=== PATIENT | male | born 1940 | race Caucasian/White ===

== ENCOUNTER 2018-08-11 18:48 | Observation (INO) | payer MEDICARE, MEDICAID ==
[~2018-08-11] VITALS: Ht 175.3 cm; Wt 82.6 kg
[~2018-08-11 18:48] MED LIST: BL ADULT ASA81 MG PO; CIPROFLOXACN500 MG PO; GLYCOLAX3350 N1 PO; HYZAAR1 TA1 PO; MILK OF MAG30 ML/UDC PO; SMZ-TMP DS1 TAB PO; TAMSULOSIN0.4 MG PO
--- NOTE | 2018-08-11 18:48 | NUR ---
PATIENT BROUGHT IMMEDIATELY TO TREATMENT AREA VIA WHEELCHAIR. UNDRESSED INTO A GOWN, PLACED ON MONITOR. TRIAGE COMPLETED AT BEDSIDE.
[2018-08-11 19:21] LABS: IMMATURE GRANULOCYTES 1.4 % (0.0-5.0); MEAN CELL VOLUME 93.6 fL CALC (80.0-100.0); MEAN CORPUSCULAR HGB 31.3 pG CALC (26.0-32.0); MEAN CORPUSCULAR HGB CONC 33.4 g/L CALC (32.0-36.0); NEUT# 2.07 thou/uL (1.82-7.42); RED BLOOD COUNT 4.67 mill/uL (4.70-6.10); RED CELL DISTRI WIDTH 13.2 % (11.5-15.5)
[2018-08-11 19:25] LABS: HEMATOCRIT 43.7 % (39.0-50.0); HEMOGLOBIN 14.6 g/dl (14.0-18.0)
[2018-08-11 19:34] LABS: ALBUMIN 4.6 g/dL (3.2-5.0); ALKALINE PHOSPHATASE 54 u/l (38-126); ANION GAP 17 (6-22 (CALC)); BILIRUBIN, TOTAL 0.7 mg/dL (0.0-1.4); BUN 12 mg/dL (8-23); BUN/CREATININE RATIO 10 (12-20 (CALC)); CARBON DIOXIDE 26 mmol/l (22-30); CHLORIDE 99 mmol/l (95-108); CREATININE 1.2 mg/dL (0.7-1.3); GFR 58 ML/MIN (>=60 (CALC)); GFR FOR AFR.AMER. > 60 ML/MIN (>=60 (CALC)); SGOT/AST 20 u/l (19-48); SODIUM 138 mmol/l (137-146); TOTAL PROTEIN 7.6 g/dL (6.3-8.2)
[2018-08-11 19:46] LABS: MYOGLOBIN 51 ng/mL (0 - 121)
--- NOTE | 2018-08-11 20:19 | NUR ---
PT WITH IV ESTABLISHED, BLOOD DRAWN, HAS BEEN TO CT AND BACK. FAMILY AT BEDSIDE.
--- NOTE | 2018-08-11 20:55 | NUR ---
EDP IN ROOM, EXPLAINS FINDINGS AND PLAN OF CARE TO ADMIT PT. PT WITH MANY FAMILY MEMBERS AT BEDSIDE, SUPPORTIVE.
[2018-08-11 21:13] LABS: URINE BILIRUBIN - DIPSTICK NEGATIVE (NEGATIVE); URINE BLOOD DIPSTICK NEGATIVE (NEGATIVE); URINE COLOR YELLOW; URINE GLUCOSE - DIPSTICK NEGATIVE (NEGATIVE); URINE KETONE NEGATIVE (NEGATIVE); URINE LEUK ESTERASE NEGATIVE (NEGATIVE); URINE NITRITE - DIPSTICK NEGATIVE (Negative); URINE PROTEIN - DIPSTICK NEGATIVE (NEG-TRACE); URINE UROBILINOGEN - DIPSTICK 0.2 E.U./dL (0.2)
--- NOTE | 2018-08-11 21:13 | NUR ---
REPORT PROVIDED TO TACHO, TO MONICA SOON.
--- NOTE | 2018-08-11 21:25 | NUR ---
PT. ARRIVED TO THE FLOOR VIA STRETCHER ACCOMPANIED BY ER NURSEDAN. LOPEZ IN AT BEDSIDE OBTAINING VS; PT. AND FAMILY MEMBER UPDATED WITH POC; VERBALIZES UNDERSTANDING; INSTRUCTED ON FALL RISK INSTRUCTIONS AND INSTRUCTED TO CALL FOR ALL OOB NEEDS AND TO URINATE IN URINAL FOR EVERY VOID; VERBALIZES UNDERSTANDING; PT. WAS MEDICATED IN ER WITH 0.2 CLOIDINE FOR HTN; WILL CONTINUE TO MONITOR.
--- NOTE | 2018-08-11 21:29 | NUR ---
PT TAKEN TO ROOM 261 WITHOUT INCIDENT, REPORT WAS TO
[2018-08-11 21:35] VITALS: BP 167/85
--- NOTE | 2018-08-11 22:00 | NUR ---
ADMISSION ASSESSMENT COMPLETED; NEURO CHECK COMPLETED AND WNL; PT. ATE AND TOLERATED WELL NO DIFFIUCLTIES NOTED WITH SWALLOWING; TELEMETRY IN PLACE AND READING SR PER ER; IV SITE PATENT AND ORDERED IVF HUNG AT THIS TIME; PT. DECLINES WANTING JAYSHREE HOSE STOCKINGS; PT. IS AMBULATORY; ENCOURAGED TO CALL FOR ANY NEEDS; CALL LIGHT IS IN REACH; WILL CONTINUE TO MONITOR.
[2018-08-11 22:15] VITALS: BP 132/71
[2018-08-11 23:22] VITALS: BP 90/49
--- NOTE | 2018-08-11 23:22 | NUR ---
DOCUMENTATION NURSE IN AT BEDSIDE OBTAINING VS; NO DISTRESS NOTED; DENIES NEEDS; CALL LIGHT IS IN REACH.
[2018-08-12 02:00] VITALS: BP 99/58
--- NOTE | 2018-08-12 02:00 | NUR ---
NEURO CHECK PERFORMED AND NO CHANGE; NO ASST. NEEDED. CALL LIGHT IS IN REACH.
[2018-08-12 03:50] VITALS: BP 111/65
--- NOTE | 2018-08-12 05:54 | NUR ---
NEURO CHECK PERFORMED AND REMAINS UNCHANGED AND WNL; DENIES NEEDS/PAIN; NEW BAG OF ORDERED IVF HUNG; CALL LIGHT IS IN REACH;
[2018-08-12 07:27] VITALS: BP 135/78
--- NOTE | 2018-08-12 07:35 | NUR ---
ASSESSMENT COMPLETED; A/OX3; RESP EVEN AND UNLABORED ON R/AIR; IVF NS @125, SITE APPEARS HEALTHY; TELE IN PLACE; NOW EATING BREAKFAST IN BED; DECLINE SITTING UP IN CHAIR; CALL CAREY AND URINAL IN REACH; SAFETY PRECAUTION REINFORCE;
--- NOTE | 2018-08-12 10:56 | NUR ---
DR CESAR AT BEDSIDE TO DISCUSS POC; RESP EVEN AND UNLABORED; URINAL AND CALL CAREY IN REACH; MULTIPLE FAMILY AT BEDSIDE.
[2018-08-12 11:00] VITALS: BP 146/83
--- NOTE | 2018-08-12 12:18 | NUR ---
SITTING UP IN BED EATING LUNCH; D/C INSTRUCTIONS GIVE, VERBALIZE UNDERSTANDING; TELE AND IV REMOVED, IV CATH INTACT; SITE APPEARS HEALTHY; REFUSE HELP FOR DRESSING; ADVISE TO CALL WHEN READY, WILL GET W/C;FAMILY MEMBE AT BEDSIDE.
--- NOTE | 2018-08-12 12:31 | NUR ---
Discharge instructions given. Patient verbalizes understanding of same. Discharged in stable condition via Wheelchair to Home with family. All belongings sent with pt.
== END 2018-08-12 12:30 | disposition home or self-care (01) ==
LOC: ED 18:48 → ED-I 20:47 → ED 21:00 → MS2 21:01
PROVIDERS: Emergency Medicine; ADMIT Internal Medicine; ATTEND Internal Medicine
DX: R07.9 Chest pain, unspecified (principal); R20.0 Anesthesia of skin; M79.602 Pain in left arm; S19.9XXS Unspecified injury of neck, sequela; X58.XXXS Exposure to other specified factors, sequela; I10 Essential (primary) hypertension; E78.5 Hyperlipidemia, unspecified; R51 Headache

== ENCOUNTER 2018-08-15 18:30 | Emergency (ER) | payer MEDICARE, MEDICAID ==
[~2018-08-15] VITALS: Ht 175.3 cm; Wt 84.1 kg
[2018-08-15 19:29] VITALS: BP 166/98
== END 2018-08-15 19:30 | disposition home or self-care (01) ==
LOC: ED 18:30
DX: I10 Essential (primary) hypertension (principal); F17.220 Nicotine dependence, chewing tobacco, uncomplicated

== ENCOUNTER 2019-09-07 15:42 | Observation (INO) | payer MEDICARE, MEDICAID ==
[~2019-09-07] VITALS: Ht 175.3 cm; Wt 77.0 kg
--- NOTE | 2019-09-07 15:53 | NUR ---
PT TO ROOM PER W/C
[2019-09-07 16:32] LABS: HEMATOCRIT 45.6 % (39.0-50.0); HEMOGLOBIN 15.3 g/dl (14.0-18.0); MEAN CELL VOLUME 93.4 fL CALC (80.0-100.0); MEAN CORPUSCULAR HGB 31.4 pG CALC (26.0-32.0); MEAN CORPUSCULAR HGB CONC 33.6 g/dL CAL (32.0-36.0); NEUT# 9.93 thou/uL (1.82-7.42); RED BLOOD COUNT 4.88 mill/uL (4.70-6.10); RED CELL DISTRI WIDTH 13.7 % (11.5-15.5)
[2019-09-07 16:47] LABS: ALBUMIN 4.3 g/dL (3.2-5.0); ALKALINE PHOSPHATASE 66 u/l (38-126); AMYLASE 117 u/l (30-110); ANION GAP 16 (6-22 (CALC)); BUN 16 mg/dL (8-23); BUN/CREATININE RATIO 15 (12-20 (CALC)); CARBON DIOXIDE 24 mmol/l (22-30); CHLORIDE 100 mmol/l (95-108); CREATININE 1.1 mg/dL (0.7-1.3); GFR > 60 ML/MIN (>=60 (CALC)); GFR FOR AFR.AMER. > 60 ML/MIN (>=60 (CALC)); LIPASE 82 u/l (23-300); POTASSIUM 4.1 mmol/l (3.5-5.1); SGOT/AST 28 u/l (19-48); SODIUM 136 mmol/l (137-146); TOTAL PROTEIN 7.4 g/dL (6.3-8.2)
[2019-09-07 16:57] LABS: ACT PARTIAL THROMBO TIME 24.2 SECONDS (20.0-32.5); PROTHROMBIN TIME 14.1 SECONDS (9.0-12.5)
[2019-09-07 16:58] LABS: INTERNATIONAL NORMALIZED RATIO 1.4 RATIO (0.7-1.3)
--- NOTE | 2019-09-07 17:30 | NUR ---
PT DRINKING LAST CUP OF GASTROGRAFFIN ADVISED OF CT SCAN AT APPROX 1830 PT REPORTS DECREASE IN PAIN SINCE MORPHINE PUSH. FAMILY AT BEDSIDE.
--- NOTE | 2019-09-07 18:21 | NUR ---
PT MEDICATED FOR C/O RETURNING ABD PAIN VIA IV. ADVISED OF WAIT TIME FOR CT. CALL LIGHT WITHIN REACH. FAMILY AT BEDSIDE.
--- NOTE | 2019-09-07 18:28 | NUR ---
PT TO CT VIA STRETCHER ACCOMPANIED BY STAFF.
[2019-09-07 19:50] VITALS: BP 129/67
--- NOTE | 2019-09-07 20:10 | NUR ---
DR MONTIEL IN TO SEE PT DISCUSSED POC W/PT FOR SURGICAL PROCEDURE. PT IN AGREEMENT. PT TO OR ACCOMPANIED BY STAFF VIA STRETCHER.
[2019-09-07 22:50] VITALS: BP 129/67
[2019-09-07 23:08] VITALS: BP 134/79
[2019-09-07 23:21] VITALS: BP 116/71
--- NOTE | 2019-09-07 23:30 | NUR ---
PATIENT ADMITTED FROM PACU VIA STRETCHER AND PACU STAFF. PATIENT MAX ASSIST FROM STRETCHER TO BED. PATIENT IS VERY DROWSEY AT THIS TIME. PATIENT WITH O2 VIA NASAL CANNULA AT 2LPM. IV SITE TO LEFT FOREARM INTACT WITH IVF PATENT AND INFUSING AT 125CC/HR., SITE IS HEALTHY. DRESSING TO RIGHT GROIN CDI. ICE PACK TO RIGHT GROIN ON AND OFF ORDERED. PARIKH CATH PATENT AND DRAINING STEFFEN URINE AT THIS TIME. TELE MONITOR APPLIED ORDERED-SR IN 70"S. AFEBRILE AND VS STABLE.LUNGS ARE CLEAR BUT SHALLOW-ENCOURAGED DB EXERCISE-WILL NEED REINFORCEMENT SECONDARY TO BE DROWSEY. ATTEMPT TO EDUCATE PATIENT REGUARDING USE OF IS-WILL NEED REINFOREMENT WELL. ATTEMPTED TO ORIENT PATIENT TO ROOM AND SURROUNDINGS. INSTRUCTED ON USE OF NURSE CALL LIGHT SYSTEM, TV REMOTE AND PHONE. TAKING A FEW ICE CHIP WITH ASSIST. SAFETY PRECAUTIONS REINFORCED. CALL LIGHT IN REACH. WILL CONT TO MONITOR.
[2019-09-07 23:48] VITALS: BP 116/71
[2019-09-08] VITALS (7 sets, daily range): BP systolic 107–132; BP diastolic 61–81
--- NOTE | 2019-09-08 00:30 | NUR ---
VS REMAINS STABLE-AFEBRILE. MEDICATED FOR PAIN WITH OXYCODONE 5MG PO WITH SIP OF H20. IVF PATENT AND INFUSING AT 125CC/HR. TELE MONITOR IN PLACE. PARIKH PATENT AND DRAINING STEFFEN URINE. CALL LIGHT IN REACH. WILL CONT TO KAE.
--- NOTE | 2019-09-08 04:04 | NUR ---
PATIENT RESTING IN BED-HOB SLIGHTLY ELEVATED AND EYES CLOSED. IVF PATENT AND INFUSING VIA RIGHT FOREARM AT 125CC/HR. SITE REMAINS HEALTHY. O2 VIA NASAL CANNULA IN PLACE. FOLRY PATENT AND DRAINING STEFFEN URINE. TELE MONITOR IN PLACE. CALL LIGHT IN REACH. WILL CONT TO MONITOR.
[2019-09-08 05:12] LABS: HEMATOCRIT 41.5 % (39.0-50.0); HEMOGLOBIN 13.7 g/dl (14.0-18.0); IMMATURE GRANULOCYTES 1.7 % (0.0-5.0); MEAN CELL VOLUME 94.7 fL CALC (80.0-100.0); MEAN CORPUSCULAR HGB 31.3 pG CALC (26.0-32.0); NEUT# 10.8 thou/uL (1.82-7.42); RED BLOOD COUNT 4.38 mill/uL (4.70-6.10); RED CELL DISTRI WIDTH 13.6 % (11.5-15.5)
[2019-09-08 05:25] LABS: ANION GAP 12 (6-22 (CALC)); BUN 17 mg/dL (8-23); BUN/CREATININE RATIO 16 (12-20 (CALC)); CARBON DIOXIDE 26 mmol/l (22-30); CHLORIDE 102 mmol/l (95-108); CREATININE 1.1 mg/dL (0.7-1.3); GFR > 60 ML/MIN (>=60 (CALC)); GFR FOR AFR.AMER. > 60 ML/MIN (>=60 (CALC)); POTASSIUM 4.5 mmol/l (3.5-5.1); SODIUM 135 mmol/l (137-146)
--- NOTE | 2019-09-08 07:20 | NUR ---
CHANGE OF SHIFT REPORT RECEIVED FROM BEBA PEDERSON. PT IN SEMI-SIMMS POSITION. PT ABLE TO MAKE NEEDS KNOWN. PT DENIES PAIN OR DISCOMFORT. CALL LIGHT WITHIN EASY REACH. MANAGER INFUSION WILL CONTINUE TO MONITOR
--- NOTE | 2019-09-08 12:00 | NUR ---
PT RESTING COMFORTABLY. NO S/S OF DISTRESS. PT IS ABLE TO MAKE HIS NEEDS KNOWN. PT DENIES PAIN. CALL LIGHT WITHIN EASY REACH, BED IN LOWEST POSITION. TECHNICAL SALES SUPPORT SPECIALIST WILL CONTINUE TO MONITOR
--- NOTE | 2019-09-08 16:30 | NUR ---
PRINTED CIRCUIT BOARDS STRIPPER ETCHER DISCONTINUED PARIKH AND IV FLUIDS PER MD'S ORDER. PRINTED CIRCUIT BOARDS STRIPPER ETCHER WILL MONITOR URINE OUTPUT POST D/C OF PARIKH. PT NOW ON REGULAR DIET. PRINTED CIRCUIT BOARDS STRIPPER ETCHER WILL MONITOR TO SEE HOW PT TOLERATES REGULAR DIET. PT DENIES PAIN OR DISCOMFORT. CALL LIGHT WITHIN EASY REACH.
--- NOTE | 2019-09-08 20:10 | NUR ---
PT AWAKE RESTING IN BED. PT IS ALERT AND ORIENTED X3. RESP EVEN AND UNLABORED. LUNGS CLEAR BILAT. ABD SOFT AND NONDISTENDED WITH BOWEL SOUNDS PRESENT. RT GROIN DRESSING IS CLEAN AND DRY WITH SHADOWING NOTED ON DRESSING. DRAINAGE IS OLD. NO BLEEDING OR HEMATOMA NOTED AT SITE. STRONG PEDAL PULSES PALPATED BILAT. NO LOWER EXT EDEMA NOTED. HEPLOCK IS PATENT. URINAL AT BEDSIDE. DENIES ANY DISCOMFORT. TELE SB 58 PER E.D. FREQUENT ROUNDS MADE. CALL CAREY WITHIN REACH.
--- NOTE | 2019-09-08 22:00 | NUR ---
PT AWAKE RESTING IN BED. PT DID VOID 100CC OF CLEAR YELLOW URINE IN URINAL. PT IS DRINKING WATER. DENIES ANY FEELING OF HAVING TO URINATE. WILL CONTINUE TO CLOSELY MONITOR. CALL CAREY WITHIN REACH.
--- NOTE | 2019-09-08 23:30 | NUR ---
PT AWAKE RESTING IN BED. VOIDED 100CC OF CLEAR YELLOW URINE. POST VOID BLADDER SCAN DONE SHOWING 95CC OF URINE POST VOID. ABD SOFT AND NONDISTENDED . PT DENIES FEELING LIKE HE HAS TO URINATE. PT ENCOURAGED TO DRINK BUT WILL NOT DRINK MUCH. FRESH WATER AT BEDSIDE. FREQUENT ROUNDS MADE. CALL CAREY WITHIN REACH.
--- NOTE | 2019-09-09 00:44 | NUR ---
PT RESTING IN BED WITH EYES CLOSED. RESP EVEN AND UNLABORED. NO DISTRESS NOTED. DRESSING ON RT GROIN REMAINS UNCHANGED. HEPLOCK IS PATENT. TELE INTACT. FREQUENT ROUNDS MADE. CALL CAREY WITHIN REACH.
[2019-09-09 04:00] VITALS: BP 127/75
--- NOTE | 2019-09-09 04:29 | NUR ---
PT RESTING IN BED WITH EYES CLOSED. RESP EVEN AND UNLABORED. NO DISTRESS NOTED. HEPLOCK IS PATENT. ASSESSMENT UNCHANGED. FREQUENT ROUDNS MADE. CALL CAREY WITHIN REACH.
--- NOTE | 2019-09-09 05:30 | NUR ---
PT VOIDED 300CC OF YELLOW URINE WITHOUT ANY DIFFICULTY. RESP EVEN AND UNLABORED. DENIES ANY DISCOMFORT. FREQUENT ROUNDS MADE. CALL CAREY WITHIN REACH.
--- NOTE | 2019-09-09 07:20 | NUR ---
CHANGE OF SHIFT REPORT RECEIVED FROM BEBA VIDALES. PT IN ROOM SITTING UP IN BED. PT HAS OUTPUT OF 550ML OF YELLOW URINE IN PARIKH. BLADDER IS NON PALPABLE; BLADDER IS NOT DISTENDED. PT HAS CALL LIGHT WITHIN EASY REACH. PT DENIES PAIN OR DISCOMFORT. CAR SALESMAN WILL CONTINUE TO MONITOR.
[2019-09-09 07:43] VITALS: BP 143/87
[2019-09-09 10:35] VITALS: BP 127/76
--- NOTE | 2019-09-09 12:00 | NUR ---
Discharge instructions given. Patient verbalizes understanding of same. Discharged in good condition via Wheelchair to Home with family. All belongings sent with pt.
== END 2019-09-09 12:04 | disposition home or self-care (01) ==
LOC: ED 15:42 → ED-I 18:50 → ED 19:00 → ED-I 19:01 → MS2 19:01
PROVIDERS: ADMIT Internal Medicine; ATTEND Internal Medicine
PROC: 0YU50JZ Supplement Right Inguinal Region with Synthetic Substitute, Open Approach (ICD-10-PCS; principal; 2019-09-07)
DX: K40.30 Unilateral inguinal hernia, with obstruction, without gangrene, not specified as recurrent (principal); I10 Essential (primary) hypertension; E78.5 Hyperlipidemia, unspecified; Z85.51 Personal history of malignant neoplasm of bladder; Z11.59 Encounter for screening for other viral diseases
CPT/HCPCS: C9290; J0131; J1100; J2710